=== PATIENT | male | born 1955 | race Caucasian/White ===

== ENCOUNTER 2020-08-16 13:41 | Inpatient (IN) | payer MEDICARE, OTHER ==
[~2020-08-16] VITALS: Ht 177.8 cm; Wt 72.6 kg
--- NOTE | 2020-08-16 13:47 | NUR ---
patient dominique from methadone clinic c/o body pain. On room air, breathing evenly and unlabored. On room air, breathing evenly and unlabored. connected to the monitor and pulse ox. kept comfortable, will continue to monitor accordingly.
[2020-08-16 16:06] LABS: BASOPHILS % (AUTO) 0.6 % (0.0-2.0); EOSINOPHILS % (AUTO) 5.1 % (0.0-6.0); HEMATOCRIT 40 % (39-51); LYMPHOCYTES # (AUTO) 2.2 /CMM (0.8-4.8); LYMPHOCYTES % (AUTO) 28.2 % (20.0-44.0); MEAN CORPUSCULAR HGB CONC 32 g/dl (31.0-36.0); MEAN CORPUSCULAR VOLUME 86 fL (80-96); MONOCYTES # (AUTO) 0.4 /CMM (0.1-1.30); MONOCYTES % (AUTO) 4.7 % (2.0-12.0); NEUTROPHILS # (AUTO) 4.7 /CMM (1.8-8.9); NEUTROPHILS % (AUTO) 61.4 % (43.0-81.0); PLATELET COUNT (AUTO) 214 /CMM (150-450); RED BLOOD CELL COUNT(AUTO) 4.65 MIL/uL (4.5-6.0); WHITE BLOOD COUNT (AUTO) 7.6 K/uL (4.3-11.0)
[2020-08-16 16:19] LABS: CALCIUM, SERUM 8.8 mg/dL (8.5-10.1); CARBON DIOXIDE 31 mmol/L (21-32); CHLORIDE 103 mmol/L (98-107); GLUCOSE 93 mg/dL (74-106); POTASSIUM 4.3 mmol/L (3.5-5.1); SODIUM SERUM 140 mmol/L (136-145); UREA NITROGEN, BLOOD 18 mg/dL (7-18)
[2020-08-16 16:26] LABS: ALANINE AMINOTRANSFERASE 21 U/L (12-78); ALBUMIN 3.3 g/dL (3.4-5.0); ALKALINE PHOSPHATASE 94 U/L (46-116); ASPARTATE AMINOTRANSFERASE 21 U/L (15-37); BILIRUBIN,DIRECT 0.1 mg/dL (0.0-0.2); BILIRUBIN,TOTAL 0.3 mg/dL (0.2-1.0); LIPASE 42 U/L (73-393); TOTAL PROTEIN, SERUM 7.3 g/dL (6.4-8.2)
[2020-08-16] MEDS ORDERED: IOHEXOL-300 100 ML VIAL IV ONE (16:28)
[2020-08-16] MEDS ORDERED: IV NS 0.9% 250 ML IV ONE (16:28)
--- NOTE | 2020-08-16 17:54 | NUR ---
MOVE SHEET SUBMITTED AND CALLED FOR MS BED.
--- NOTE | 2020-08-16 18:03 | NUR ---
urine collected and sent to lab
[2020-08-16] MEDS ORDERED: MIRT15TA PO (18:13)
[2020-08-16] MEDS ORDERED: TAMS-12 PO (18:13)
[2020-08-16] MEDS ORDERED: ARIP10TA9 PO (18:13)
[2020-08-16] MEDS ORDERED: TRAZ-257 PO (18:13)
[2020-08-16] MEDS ORDERED: METH10TA2 PO (18:13)
--- NOTE | 2020-08-16 18:24 | NUR ---
covid 19 swab collected and sent to lab
[2020-08-16 18:29] LABS: BILIRUBIN,URINE Negative (NEGATIVE); BLOOD, URINE Small Ery/uL (NEGATIVE); COLOR,URINE Yellow (YELLOW); KETONES,URINE Trace (NEGATIVE); LEUKOCYTE ESTERASE ,URINE Trace (NEGATIVE); NITRITE, URINE Negative (NEGATIVE); PH,URINE 5.5 (5.0-8.0); PROTEIN,URINE Negative (NEGATIVE); UGLUCOSE Negative (NEGATIVE); UROBILINOGEN,URINE 0.2 EU/dL (0.2)
[2020-08-16 18:35] LABS: APPEARANCE,URINE HAZY (CLEAR)
[2020-08-16 18:37] LABS: BACTERIA,URINE Few /HPF (None Seen); CALCIUM OXALATE CRYSTALS,UR Few /HPF (None Seen); SQUAMOUS EPITHELIAL CELL,UR Few /HPF (None Seen)
--- NOTE | 2020-08-16 19:19 | NUR ---
COVID NEGATIVE RESULT PER LAB.
--- NOTE | 2020-08-16 20:29 | NUR ---
report given to lukas mena for blaze pt will be transported to 3rd floor
[2020-08-16 20:35] VITALS: BP 141/85
--- NOTE | 2020-08-16 20:35 | NUR ---
ms oil burner repairer note received patient via wheel chair. ambulated to bed with steady gait. patient a/ox4. tolerating room air. respirations are even and unlabored. no s/s sob noted. c/o pain in bilateral chest/ribs. informed waiting for MD orders. in no apparent distress. iv access in LAC#20 patent and saline locked. scratch finisher obtained vital signs and completed belongings list. inial physical assessment completed at this time. skin assessment completed, photos taken and placed in chart. bed is low and locked, hob elevated in semi fowlers, side rails up x2, call light within reach. will continue to monitor.
--- NOTE | 2020-08-16 20:46 | NUR ---
pt transported to 3rd floor
[2020-08-16] MEDS ORDERED: Z GUARD REMEDY 2 OZ OINT TP PRN (21:00)
[2020-08-16] MEDS ORDERED: ACETAMINOPHEN 325 MG TABLET PO PRN (21:00)
[2020-08-16] MEDS ORDERED: ONDANSETRON HCL/PF 4 MG/2 ML VIAL IVP PRN (21:00)
[2020-08-16] MEDS: TRAZODONE 50 MG TABLET PO SCH (22:00)
[2020-08-16] MEDS: MIRTAZAPINE 15 MG TABLET PO SCH (22:42)
[2020-08-16] MEDS: MORPHINE SULFATE INJ 2 MG/ML DISP.SYRIN IV PRN (22:49)
[2020-08-16] MEDS: TAMSULOSIN 0.4 MG CAP.SR.24H PO SCH (23:33)
--- NOTE | 2020-08-17 03:00 | NUR ---
ms rn note patient refused lab draw for troponin. only allowed principal database developer to try once. informed patient importance of taking blood. patient educated and still refused. lab will try to draw with am labs. will continue to monitor.
--- NOTE | 2020-08-17 06:41 | NUR ---
ms rn closing note patient in bed. a/ox4. remains tolerating room air. no resp distress. managed pain with morphine 4mg. no distress. iv access maintained in LAC#20 patent and saline locked. bed is low and locked, hob elevated in semi fowlers, side rails up x2, call light within reach. will endorse to next ashift.
--- NOTE | 2020-08-17 07:20 | NUR ---
ms rn received on bed, awake,alert,oriented x4,not in any form of distress, rerspirations even and unlabored,no sob noted,denies pain at this time all needs attended.
[2020-08-17 08:00] VITALS: BP 104/66
--- NOTE | 2020-08-17 08:12 | NUR ---
WOUND CARE CONSULT: PT PRESENTS WITH DRY LESION TO RT SIDE OF FOREHEAD, PRESENT ON ADMISSION. PT STATES THAT HE HAS SKIN CANCER AND WILL FOLLOW UP WITH HIS DOCTOR AFTER DISCHARGE. PT DENIED NEED FOR FURTHER SKIN ASSESSMENT. CURRENT GLORIA SCORE IS 22. WILL SEE PRN.
--- NOTE | 2020-08-17 08:30 | NUR ---
ms rn doing rounds, ask patient what is the dose for methadone he is taking, and found some methadone in his back pack.
[2020-08-17] MEDS ORDERED: TAMSULOSIN 0.4 MG CAP.SR.24H PO SCH (09:00)
--- NOTE | 2020-08-17 09:00 | NUR ---
ms rn called his pharmacy for methadone dose,patient's meds given to pharmacy.
[2020-08-17] MEDS: ARIPIPRAZOLE 5 MG TABLET PO SCH (09:55)
[2020-08-17] MEDS: TAMSULOSIN 0.4 MG CAP.SR.24H PO SCH ×2 (09:55→17:34)
--- NOTE | 2020-08-17 10:15 | NUR ---
ms rn was seen by loki bai/ orders made and carried out.
--- NOTE | 2020-08-17 13:17 | NUR ---
11:00am Milk Processing Worker met with the patient for homeless consult. Patient was alert and oriented x4. Patient stating to this SW hurry up and ask your questions. Per patient, confirmed demographics on face sheet including date of and social security number. Patient reports he is not homeless. Patient stated You are the second person to come into my room and say I am homeless. I gave the paramedics my ID card and someone here my address. No one lives in my home except for me. This SW apologized for the mix up. Patient tone of voice became irritable and deeper stating Just because I use methadone doesnt mean you can all just treat me like Im incapable of anything. The only person that has not come in to see me is the doctor. Patient then stated again hurry up and ask your questions. This SW thanked the patient for his time and assured him that these questions would be quick. Patient reported that he had been diagnosed with PTSD, Bipolar and Manic Depressive about 6 years ago and currently taking his medications. Patient reported that he had been smoking cigarettes for a long time but has recently switched to chewing tobacco. Patient denied suicidal and homicidal ideation.
[2020-08-17] MEDS: MORPHINE SULFATE INJ 2 MG/ML DISP.SYRIN IV PRN (13:55)
--- NOTE | 2020-08-17 15:20 | NUR ---
ms rn gave report to 3wesr rn, for continuity of care.
[2020-08-17 16:00] VITALS: BP 120/67
--- NOTE | 2020-08-17 18:50 | NUR ---
RN Closing note Patient in bed, resting comfortably, dose no appears pain or distress, respiratory even and unlabored on room air. Skin is warm to touch, keep clean/dry. Pt took on scheduled medication with compliance. Kept bed in locked with elevated HOB for ensure airway and aspiration precaution. Call light within reach, will endorse electric deicer assembler.
--- NOTE | 2020-08-17 19:32 | NUR ---
MS [employer] OPEN NOTES PATIENT IS LAYING IN BED. A/O X4. ON 1L NASAL CANULA, NO SOB/ ACUTE RESPIRATORY DISTRESS NOTED. NO COMPLAINTS OF PAIN AT THE MOMENT. BED IS IN LOWEST LOCKED POSITION WITH SIDE RAILS UP X3, SEMI FOWLERS. CALL LIGHT IS WITHIN REACH. WILL CONTINUE TO MONITOR.
[2020-08-17 20:00] VITALS: BP 112/71
[2020-08-17] MEDS: MIRTAZAPINE 15 MG TABLET PO SCH (21:06)
[2020-08-17] MEDS: TRAZODONE 50 MG TABLET PO SCH (21:06)
[2020-08-17] MEDS: GUAIFENESIN LA 600 MG TABLET.SA PO SCH (21:16)
--- NOTE | 2020-08-17 23:00 | NUR ---
MS RN NOTES PATIENT REFUSED TO HAVE BLOOD DRAWN FOR LABS. HAS REFUSED 4 TIMES NOW DESPITE DISCUSSING CONSEQUENCES + WHY IT IS NEEDED. WILL CONTINUE TO MONITOR PT.
[2020-08-18] MEDS: MORPHINE SULFATE INJ 2 MG/ML DISP.SYRIN IV PRN ×3 (00:33→20:44)
--- NOTE | 2020-08-18 06:42 | NUR ---
MS RN CLOSE NOTES PATIENT IS LAYING IN BED. A/O X4. ON 1L NASAL CANULA, NO SOB/ ACUTE RESPIRATORY DISTRESS NOTED. IV IN L AC #20G IS PATENT AND INTACT. APPEARS COMFORTABLE/ NO COMPLAINTS OF PAIN AT THE MOMENT. PT ABLE TO AMBULATE TO BATHROOM. BED IS IN LOWEST LOCKED POSITION WITH SIDE RAILS UP X3, SEMI FOWLERS. CALL LIGHT IS WITHIN REACH. WILL ENDORSE TO AM NURSE.
[2020-08-18] MEDS: ALBUTEROL FS 2.5 MG/0.5 ML VIAL.NEB NEB SCH ×5 (07:35→19:30)
[2020-08-18 08:00] VITALS: BP 140/78
--- NOTE | 2020-08-18 08:00 | NUR ---
MS RN NOTES RECEIVED PATIENT IN THE RONA/O X3 ROOM AIR, NO ACUTE RESPIRATORY DISTRESS, WAS COMPLAINING OF PAIN RIBS ACUTE 10/10 PER PAIN SCALE. IV ACCESS ON LEFT AC AREA INTACT V/S WNL. PATIENT TURN AND REPOSTION SELF IN THE BED, CALL LIGHT WITHIN TO REACH. TOLERATED BREAKFAST 20%. WILL CONTINUED MONITORING.
--- NOTE | 2020-08-18 08:02 | NUR ---
PT REFUSED RESP TX ATT. NO S/S OF SOB NOTED. WILL CONT TO MONITOR Addendum: 08/18/20 at 0803 by CARLOS TERRY RT Amended: Links added.
[2020-08-18] MEDS: GUAIFENESIN LA 600 MG TABLET.SA PO SCH ×2 (08:14→21:24)
[2020-08-18] MEDS: TAMSULOSIN 0.4 MG CAP.SR.24H PO SCH ×2 (08:14→19:22)
[2020-08-18] MEDS: ARIPIPRAZOLE 5 MG TABLET PO SCH (08:14)
--- NOTE | 2020-08-18 08:15 | NUR ---
MS RN NOTES ADMINISTERED MORPHINE SULFATE 4 MG/ML IV PUSH FOR RIBS ACUTE PAIN 09/03 PER PATIENT REQUEST. V/S TAKEN BP-140/78,P88, R-20. ALSO ADMINISTERED SCHEDULED MEDICATION.
[2020-08-18] MEDS: METHADONE 70 MG PO SCH (10:02)
--- NOTE | 2020-08-18 13:00 | NUR ---
rn notes patient resting in the bed, refused pain at this time, tolerated lunch well.
[2020-08-18 16:00] VITALS: BP 117/62
--- NOTE | 2020-08-18 18:30 | NUR ---
rn notes PATIENT STABLE MEDICATION ADMINISTERED, ENCOURAGED TO INCREASE FLUID INTAKE. ENDORSED ONCOMING NURSE FOLLOW PLAN OF CARE.
[2020-08-18] MEDS ORDERED: MAGNESIUM HYDROXIDE 30 ML UDC PO PRN (19:30)
--- NOTE | 2020-08-18 19:56 | NUR ---
MS RN NOTES PATIENT IN BED, AWAKE, ALERT AND ORIENTED X 4. BREATHING EVEN AND UNLABORED ON 1L SHOWS NO SIGNS FO ACUTE RESPIRATORY DISTRESS, NO ACUTE PAIN. IV ON LAC 20G SL. SHOWS NO SIGNS OF INFILTRATION, NO REDNESS. SAFETY PRECAUTIONS IN PLACE. BED IN LOWEST POSITION, LOCKED, AND CALL LIGHT KEPT WITHIN REACH. WILL CONTINUE TO MONITOR.
[2020-08-18 20:00] VITALS: BP 125/71
--- NOTE | 2020-08-18 20:44 | NUR ---
MS RN NOTES PATIENT COMPLAINING OF PAIN 07/04. GIVEN MORPHINE PRN AT 2043. VITAL SIGNS WNL. ENDORSED PT TO SUE KENYON FOR NATHALIE.
[2020-08-18] MEDS: TRAZODONE 50 MG TABLET PO SCH (21:24)
[2020-08-18] MEDS: MIRTAZAPINE 15 MG TABLET PO SCH (21:25)
[2020-08-19] MEDS: MORPHINE SULFATE INJ 2 MG/ML DISP.SYRIN IV PRN ×2 (01:06→21:01)
--- NOTE | 2020-08-19 01:06 | NUR ---
MS RN NOTES C/P CHEST PAIN 8/10 ON PAIN SCALE,MEDICATED WITH MORPHINE 4MG IV ORDERED.
--- NOTE | 2020-08-19 06:03 | NUR ---
MS/RN CLOSING NOTE Patient asleep in bed, A/O x4. Breath sounds even, unlabored on 1L NC. No signs of acute distress or SOB. IV site 20g LAC saline locked, patent and intact. No redness or infiltration. Patient instructed to perform IS x10/hour, verbalizes understanding. Patient denies nausea or vomiting, Afebrile. Bed in low position, wheels locked, side rails up x2, call light within reach. Will endorse to oncoming nurse.
--- NOTE | 2020-08-19 07:30 | NUR ---
[employer] OPENING NOTES RECEIVED PATIENT IN THE RONA/O X3 ROOM AIR, NO ACUTE DISTRESS, . IV ACCESS ON LEFT AC AREA INTACT V/S WNL. PATIENT TURN AND REPOSTION SELF IN THE BED, CALL LIGHT WITHIN TO REACH. SAFETY PRECAUTION OBSERVED. WILL CONTINUED MONITORING
[2020-08-19] MEDS: ALBUTEROL FS 2.5 MG/0.5 ML VIAL.NEB NEB SCH ×4 (07:35→19:30)
[2020-08-19 08:00] VITALS: BP 117/79
[2020-08-19] MEDS: METHADONE 70 MG PO SCH (09:29)
[2020-08-19] MEDS: TAMSULOSIN 0.4 MG CAP.SR.24H PO SCH ×2 (09:30→17:48)
[2020-08-19] MEDS: ARIPIPRAZOLE 5 MG TABLET PO SCH (09:30)
[2020-08-19] MEDS: GUAIFENESIN LA 600 MG TABLET.SA PO SCH ×2 (09:30→21:02)
[2020-08-19 16:00] VITALS: BP 118/62
--- NOTE | 2020-08-19 19:13 | NUR ---
HUMAN SERVICE WORKER CLOSING NOTES REMAINS A/O X4. ON 1L NASAL CANULA, NO SOB/ ACUTE RESPIRATORY DISTRESS NOTED. IV IN L AC #20G IS PATENT AND INTACT. APPEARS COMFORTABLE/ NO COMPLAINTS OF PAIN AT THE MOMENT. PT ABLE TO AMBULATE TO BATHROOM. BED IS IN LOWEST LOCKED POSITION WITH SIDE RAILS UP X3, SEMI FOWLERS. CALL LIGHT IS WITHIN REACH. WILL ENDORSE TO NEXT SHIFT.
--- NOTE | 2020-08-19 19:15 | NUR ---
MS RN OPENING NOTES: RECEIVED PATIENT IN BED, ASLEEP, EASILY AROUSABLE. NO S/S OF DISTRESS NOTED. NO COMPLAIN OF PAIN. CALL LIGHT WITHIN REACH. BED ALARM ON. BED IN LOWEST AND LOCKED POSITION. URINAL AT THE BEDSIDE. REMINDED TO USE INCENTIVE SPIROMETER, PATIENT VERBALIZED UNDERSTANDING. REFUSED THE DVT PUMPS. REMINDED PATIENT THE BENEFITS OF DVT PUMPS.
--- NOTE | 2020-08-19 19:55 | NUR ---
RT NOTE PT REFUSED RESP TX. NO S/S OF SOB NOTED. WILL CONT TO MONITOR T/O SHIFT
[2020-08-19 20:00] VITALS: BP 114/72
[2020-08-19] MEDS: TRAZODONE 50 MG TABLET PO SCH (21:49)
[2020-08-19] MEDS: MIRTAZAPINE 15 MG TABLET PO SCH (21:49)
--- NOTE | 2020-08-20 06:32 | NUR ---
MS RN CLOSING NOTES: PATIENT IN BED,AWAKE, A/O X4. NO S/S OF DISTRESS NOTED. NO COMPLAIN OF PAIN AT THIS TIME. CALL LIGHT WITHIN REACH. BED IN LOWEST AND LOCKED POSITION.
[2020-08-20] MEDS: ALBUTEROL FS 2.5 MG/0.5 ML VIAL.NEB NEB SCH ×3 (07:35→15:30)
[2020-08-20 08:00] VITALS: BP 123/80
[2020-08-20] MEDS ORDERED: KEY,NONCONTROL,TO KEEP IN PYXI 1 EA MC ONE (08:39)
[2020-08-20] MEDS: GUAIFENESIN LA 600 MG TABLET.SA PO SCH (08:51)
[2020-08-20] MEDS: METHADONE 70 MG PO SCH (08:51)
[2020-08-20] MEDS: ARIPIPRAZOLE 5 MG TABLET PO SCH (08:52)
[2020-08-20] MEDS: TAMSULOSIN 0.4 MG CAP.SR.24H PO SCH ×2 (08:52→16:08)
[2020-08-20] MEDS: MORPHINE SULFATE INJ 2 MG/ML DISP.SYRIN IV PRN (16:08)
[2020-08-20] MEDS ORDERED: GUAI600T53 PO (17:35)
[2020-08-20] MEDS ORDERED: ALBU8.5H8 INH (17:35)
[2020-08-20] MEDS ORDERED: TAMS-12 PO (17:35)
--- NOTE | 2020-08-20 18:20 | NUR ---
Patient cleared for d/c to home by . Patient is awake alert and oriented x3, gait is steady.. All needs attended prior to discharge. Patient provided with abdominal binder and instructed to have it one while walking only. Patient verbalized understanding. Patient refused d/c pictures. D/C instructions provided and patient sighed d/c papers valuable form.. All belongings with the patient. Patient received the last dose of home medication Methadone today in am. Patient received a voucher for [employer]. Patient safely transferred to [facility] via wheelchair and picked up by taxi. Addendum: 08/20/20 at 1948 by ADELITA BARROS RN IV line removed and ID wrist band removed
== END 2020-08-20 18:20 | disposition home or self-care (01) | DRG 135 ==
LOC: ER 13:46 → MED 20:20
PROVIDERS: ADMIT Nurse Practitioner Acute Care; ATTEND Nurse Practitioner Acute Care
DX: S22.43XA Multiple fractures of ribs, bilateral, initial encounter for closed fracture (principal); F11.20 Opioid dependence, uncomplicated; V03.10XA Pedestrian on foot injured in collision with car, pick-up truck or van in traffic accident, initial encounter; Y92.410 Unspecified street and highway as the place of occurrence of the external cause; N40.0 Benign prostatic hyperplasia without lower urinary tract symptoms; F43.10 Post-traumatic stress disorder, unspecified; F17.210 Nicotine dependence, cigarettes, uncomplicated; F31.9 Bipolar disorder, unspecified; K40.90 Unilateral inguinal hernia, without obstruction or gangrene, not specified as recurrent; N20.0 Calculus of kidney; Z87.442 Personal history of urinary calculi; F15.10 Other stimulant abuse, uncomplicated
CPT/HCPCS: 36415; 70450-TC; 70486-TC; 71260-TC; 80048-TC; 80076-TC; 80305; 81000-TC; 83690-TC; 84484-TC; 85025-TC; 85730-TC; 87081-TC; 93307-TC; 97116-TC; 97530-TC; C9803-CS; G0378; G0480; J2270; J7050; Q9967

== ENCOUNTER 2025-07-08 10:13 | Inpatient (IN) | payer MEDICARE, OTHER ==
[~2025-07-08] VITALS: Ht 177.8 cm; Wt 82.4 kg
[~2025-07-08 10:13] MED LIST: ALBU8.5H8 INH; ARIP10TA9 PO; GUAI600T53 PO; METH10TA2 PO; MIRT-121 PO; TAMS-12 PO; TRAZ-257 PO
[2025-07-08 10:49] LABS: PLATELET COUNT (AUTO) 306 K/uL (150-450); RED BLOOD CELL COUNT(AUTO) 4.69 MIL/uL (4.5-6.0); RED CELL DISTRIBUTION WIDTH 13.4 % (11.5-15.0); WHITE BLOOD COUNT (AUTO) 7.9 K/uL (4.3-11.0)
[2025-07-08 11:05] LABS: LACTIC ACID 1.8 mmol/L (0.4-2.0)
[2025-07-08 11:11] LABS: CALCIUM, SERUM 9.4 mg/dL (8.5-10.1); CREATININE 1.0 mg/dL (0.6-1.3); SODIUM SERUM 132.0 mmol/L (136-145); UREA NITROGEN, BLOOD 25.0 mg/dL (7-18)
[2025-07-08 11:15] LABS: ASPARTATE AMINOTRANSFERASE 43.0 U/L (15-37); TOTAL PROTEIN, SERUM 7.9 g/dL (6.4-8.2)
[2025-07-08 12:01] LABS: APPEARANCE,URINE CLEAR (CLEAR); BLOOD, URINE Moderate Ery/uL (NEGATIVE); LEUKOCYTE ESTERASE ,URINE Negative (NEGATIVE); UGLUCOSE Negative (NEGATIVE)
[2025-07-08 12:02] LABS: NITRITE, URINE NEGATIVE (NEGATIVE)
[2025-07-08] MEDS: IV NS 0.9% 1,000 ML BAG IV ONE (12:06)
[2025-07-08 12:13] LABS: AMPHETAMINE, URINE NEGATIVE (NEGATIVE); BARBITURATE, URINE NEGATIVE (NEGATIVE); BENZODIAZEPINE, URINE NEGATIVE (NEGATIVE); CANNABINOID, URINE NEGATIVE (NEGATIVE); COCCAINE, URINE NEGATIVE (NEGATIVE); OPIATE, URINE NEGATIVE (NEGATIVE)
[2025-07-08 12:24] LABS: ADD URINE CULTURE NO; SQUAMOUS EPITHELIAL CELL,UR Few /HPF (None Seen)
[2025-07-08] MEDS ORDERED: MAG HYDROX/AL HYDROX/SIMETH 30 ML UDC PO PRN (15:30)
[2025-07-08] MEDS ORDERED: MAGNESIUM HYDROXIDE 30 ML UDC PO PRN (15:30)
[2025-07-08] MEDS ORDERED: Z GUARD REMEDY 4 OZ OINT TP PRN (15:30)
[2025-07-08] MEDS ORDERED: ONDANSETRON HCL/PF 4 MG/2 ML VIAL IVP PRN (15:30)
[2025-07-08 16:00] VITALS: BP 134/69; TEMP 98.2; O2SAT 97
[2025-07-08 18:29] VITALS: BP 134/69; TEMP 98.2; O2SAT 97
[2025-07-08 20:00] VITALS: BP 106/60; TEMP 97.9; O2SAT 97
[2025-07-09] MEDS: ACETAMINOPHEN 325 MG TABLET PO PRN (02:56)
[2025-07-09] MEDS: PANTOPRAZOLE 40 MG TABLET.DR PO SCH (07:41)
[2025-07-09 08:00] VITALS: BP 139/73; TEMP 97.5; O2SAT 96
[2025-07-09] MEDS ORDERED: TAMS-12 PO (12:23)
[2025-07-09] MEDS ORDERED: FLUT1BLS6 INH (12:23)
[2025-07-09] MEDS ORDERED: HOME MED MISCELLANEOUS XX SCH (13:00)
[2025-07-09] MEDS: TAMSULOSIN 0.4 MG CAP.SR.24H PO SCH (13:46)
[2025-07-09] MEDS: MAGNESIUM HYDROXIDE 30 ML UDC PO PRN (13:49)
[2025-07-09] MEDS: METHADONE HCL 10 MG TABLET PO SCH (13:49)
== END 2025-07-09 18:16 | disposition home health service (06) | DRG 640 ==
LOC: ER 10:20 → MED 16:32
PROVIDERS: ADMIT Nurse Practitioner Acute Care; ATTEND Nurse Practitioner Acute Care
DX: R62.7 Adult failure to thrive (principal); G92.8 Other toxic encephalopathy; E87.1 Hypo-osmolality and hyponatremia; F19.10 Other psychoactive substance abuse, uncomplicated; J44.9 Chronic obstructive pulmonary disease, unspecified; E86.0 Dehydration; Z87.442 Personal history of urinary calculi; F31.9 Bipolar disorder, unspecified; F20.9 Schizophrenia, unspecified; E86.1 Hypovolemia; Z68.26 Body mass index [BMI] 26.0-26.9, adult; F15.10 Other stimulant abuse, uncomplicated
CPT/HCPCS: 36415; 70450-TC; 71045-TC; 80048-TC; 80076-TC; 81001; 82962-TC; 83605-TC; 83690-TC; 83880; 84439-TC; 84443-TC; 84484-TC; 85025-TC; 93307-TC; 97110-TC; 97112-TC; 97116-TC; 97530-TC; 97535-TC; G0378; J7030